=== PATIENT | female | born 1950 | race Caucasian/White ===

== ENCOUNTER 2017-06-11 17:50 | Inpatient (IN) | payer MEDICARE, MEDICAID ==
[~2017-06-11] VITALS: Ht 162.6 cm; Wt 99.3 kg
[~2017-06-11 17:50] MED LIST: ACETAMINOPHEN325 MG PO; ACTIGALL 300 M300 MG PO; AGGRENOX 200/251 CAP PO; ASPIRIN325 MG PO; BACTRIM 400-801 TAB PO; BENADRYL25 MG PO; CELEXA20 MG PO; COLACE100 MG PO; CYCLOBENZAPRINE10 MG PO; DULCOLAX10 MG/SUPP RC; ELECTROLYTE PROTOCOL; FISH OIL 1,2001 CA1 PO; FLAGYL500 MG PO; GEMFIBROZIL600 MG PO; GLUCOPHAGE500 MG PO; IPRAT-ALBUT 0.5-3 ML UPD; K-TAB10 MEQ PO; LASIX INJ40 MG/4 ML IV; LASIX20 MG PO; LIPITOR40 MG PO; LOVENOX40 MG/0.4 SQ; MILK OF MAGNESI30 ML PO; MIRALAX17 GM PO; MULTI-DAY VITAM1 TAB PO; NARCAN0.4 MG/ML IV; NORCO 10/325 TA1 TA1 PO; NORVASC10 MG PO; NYSTATIN15 GM TP; PLAVIX75 MG PO; PRILOSEC20 MG PO; PROTONIX40 MG PO; SENOKOT-S TABLE1 TAB PO; SILVASORB HYDRO45 GM TP; SODIUM CL 0.91000 ML IV; SYNTHROID25 MCG PO; XANAX0.5 MG PO
[2017-06-11 19:04] LABS: BASOPHILS 0.2 % (0-2); EOSINOPHILS 0.8 % (0-7); HEMATOCRIT 26.9 % (36.0-48.0); HEMOGLOBIN 8.3 g/dL (12-16); IMMATURE GRANULOCYTES 0.2 % (0-5); LYMPHOCYTES 11.7 % (15-50); MCH 29.6 pg (26.0-34.0); MCHC 30.9 g/dL (31.0-37.0); MCV 96.1 fL (80.0-100.0); MEAN PLATELET VOLUME 9.3 fL (7.4-10.4); MONOCYTES 7.4 % (2-11); NEUTROPHILS 79.7 % (40-80); RDW 15.3 % (11.5-14.5); WBC 8.7 10x3/uL (4.8-10.8)
[2017-06-11 19:14] LABS: PLATELET COUNT 355 10x3/uL (130-400)
[2017-06-11 19:36] LABS: ALBUMIN 3.6 g/dL (3.4-5.0); ANION GAP 15.9 mmol/L (8-16); BILIRUBIN - TOTAL 0.34 mg/dL (0.2-1.3); CALCIUM 9.6 mg/dL (8.5-10.1); CARBON DIOXIDE 27.1 mmol/L (21.0-32.0); CREATININE - SERUM 1.7 mg/dL (0.6-1.3); PROTEIN - SERUM 6.8 g/dL (6.4-8.2)
[2017-06-11 20:00] VITALS: BP 122/75
[2017-06-11 22:58] LABS: APPEARANCE TURBID (CLEAR); BACTERIA NONE SEEN /hpf (NONE SEEN); BILIRUBIN NEGATIVE (NEGATIVE); COLOR YELLOW (YELLOW); EPITHELIAL CELLS 0-5 /hpf (0-5); GLUCOSE NEGATIVE (NEGATIVE); GRANULAR CAST 0-5 /lpf (NONE SEEN); HYALINE CAST 0-5 /lpf (NONE SEEN); KETONE NEGATIVE (NEGATIVE); NITRITE NEGATIVE (NEGATIVE); PROTEIN 1+ mg/dL (NEGATIVE); SPECIFIC GRAVITY 1.015 (1.005-1.020); UROBILINOGEN NORMAL (NORMAL); WHITE CELLS - URINE 0-5 /hpf (0-5)
[2017-06-11 22:59] LABS: AMORPHOUS SEDIMENT >1+ /lpf (NONE SEEN)
[2017-06-12] VITALS (20 sets, daily range): BP systolic 99–164; BP diastolic 54–90; Ht 162.6 cm; Wt 99.3 kg
[2017-06-12] MEDS ORDERED: GLUCOPHAGE500 MG PO (04:30)
[2017-06-12] MEDS ORDERED: GEMFIBROZIL600 MG PO (04:31)
[2017-06-12 07:31] LABS: BASOPHILS 0.5 % (0-2); EOSINOPHILS 1.1 % (0-7); IMMATURE GRANULOCYTES 0.3 % (0-5); LYMPHOCYTES 11.7 % (15-50); MCH 29.3 pg (26.0-34.0); MEAN PLATELET VOLUME 9.5 fL (7.4-10.4); MONOCYTES 10.5 % (2-11); NEUTROPHILS 75.9 % (40-80); RDW 15.9 % (11.5-14.5); WBC 6.6 10x3/uL (4.8-10.8)
[2017-06-12 07:36] LABS: HEMATOCRIT 32.8 % (36.0-48.0); HEMOGLOBIN 10.5 g/dL (12-16); MCV 91.6 fL (80.0-100.0); PLATELET COUNT 283 10x3/uL (130-400); RBC 3.58 10x6/uL (4.00-5.40)
[2017-06-12 13:20] LABS: BASOPHILS 0.1 % (0-2); EOSINOPHILS 0.8 % (0-7); HEMATOCRIT 34.5 % (36.0-48.0); HEMOGLOBIN 11.2 g/dL (12-16); IMMATURE GRANULOCYTES 0.3 % (0-5); LYMPHOCYTES 10.2 % (15-50); MCH 29.9 pg (26.0-34.0); MCHC 32.5 g/dL (31.0-37.0); MEAN PLATELET VOLUME 9.2 fL (7.4-10.4); MONOCYTES 7.7 % (2-11); NEUTROPHILS 80.9 % (40-80); PLATELET COUNT 282 10x3/uL (130-400); RBC 3.75 10x6/uL (4.00-5.40); RDW 16.5 % (11.5-14.5); WBC 7.4 10x3/uL (4.8-10.8)
[2017-06-12 13:28] LABS: % SATURATION 45 % (15-55); IRON 170 ug/dl (35-150); TOTAL IRON BIND CAPACITY 370 ug/dl (260-445); UNSAT IRON BIND CAPACITY 200 ug/dl (150-375)
[2017-06-12 13:43] LABS: ALBUMIN 3.2 g/dL (3.4-5.0); ANION GAP 11.7 mmol/L (8-16); BILIRUBIN - TOTAL 0.95 mg/dL (0.2-1.3); CALCIUM 9.1 mg/dL (8.5-10.1); CARBON DIOXIDE 29.9 mmol/L (21.0-32.0); CREATININE - SERUM 1.3 mg/dL (0.6-1.3); POTASSIUM - SERUM 3.6 mmol/L (3.5-5.1); PROTEIN - SERUM 6.7 g/dL (6.4-8.2)
[2017-06-13 05:00] VITALS: BP 144/59
[2017-06-13 05:09] LABS: BASOPHILS 0.3 % (0-2); EOSINOPHILS 1.6 % (0-7); HEMATOCRIT 35.4 % (36.0-48.0); HEMOGLOBIN 11.2 g/dL (12-16); IMMATURE GRANULOCYTES 0.2 % (0-5); LYMPHOCYTES 11.4 % (15-50); MCH 29.2 pg (26.0-34.0); MCHC 31.6 g/dL (31.0-37.0); MCV 92.4 fL (80.0-100.0); MEAN PLATELET VOLUME 9.5 fL (7.4-10.4); MONOCYTES 10.3 % (2-11); NEUTROPHILS 76.2 % (40-80); PLATELET COUNT 271 10x3/uL (130-400); RBC 3.83 10x6/uL (4.00-5.40); RDW 16.2 % (11.5-14.5); WBC 6.3 10x3/uL (4.8-10.8)
[2017-06-13 05:17] LABS: INR 1.06 (0.85-1.17); PROTIME 13.4 SECONDS (11.6-15.0)
[2017-06-13 05:32] LABS: BILIRUBIN - TOTAL 0.66 mg/dL (0.2-1.3); CALCIUM 9.3 mg/dL (8.5-10.1); CARBON DIOXIDE 28.8 mmol/L (21.0-32.0); CREATININE - SERUM 1.1 mg/dL (0.6-1.3); POTASSIUM - SERUM 3.8 mmol/L (3.5-5.1); PROTEIN - SERUM 6.7 g/dL (6.4-8.2)
[2017-06-13 07:28] VITALS: BP 130/65
[2017-06-13 11:04] VITALS: BP 124/62
[2017-06-13 20:00] VITALS: BP 130/72
[2017-06-14] VITALS: BP 112/60
[2017-06-14 04:00] VITALS: BP 146/62
[2017-06-14 05:25] LABS: BASOPHILS 0.3 % (0-2); EOSINOPHILS 1.3 % (0-7); HEMATOCRIT 33.4 % (36.0-48.0); HEMOGLOBIN 10.6 g/dL (12-16); IMMATURE GRANULOCYTES 0.2 % (0-5); LYMPHOCYTES 12.1 % (15-50); MCH 29.5 pg (26.0-34.0); MCHC 31.7 g/dL (31.0-37.0); MEAN PLATELET VOLUME 9.6 fL (7.4-10.4); MONOCYTES 11.8 % (2-11); NEUTROPHILS 74.3 % (40-80); PLATELET COUNT 283 10x3/uL (130-400); RBC 3.59 10x6/uL (4.00-5.40); RDW 15.5 % (11.5-14.5)
[2017-06-14 05:44] LABS: ANION GAP 13.1 mmol/L (8-16); CALCIUM 9.4 mg/dL (8.5-10.1); CARBON DIOXIDE 26.3 mmol/L (21.0-32.0); CREATININE - SERUM 1.3 mg/dL (0.6-1.3); POTASSIUM - SERUM 3.4 mmol/L (3.5-5.1)
[2017-06-14 08:51] VITALS: BP 130/68
[2017-06-16 07:21] LABS: FOLATE (FOLIC ACID) - SERUM >20.0 ng/mL (>3.0)
[2017-06-16 09:13] LABS: HAPTOGLOBIN 227 mg/dL (34-200)
== END 2017-06-14 15:15 | disposition home or self-care (01) | DRG 812 ==
LOC: D.MS 17:50
PROVIDERS: Family Medicine; Internal Medicine Gastroenterology
DX: D50.0 Iron deficiency anemia secondary to blood loss (chronic) (principal); I12.9 Hypertensive chronic kidney disease with stage 1 through stage 4 chronic kidney disease, or unspecified chronic kidney disease; K52.9 Noninfective gastroenteritis and colitis, unspecified; N18.9 Chronic kidney disease, unspecified; K21.9 Gastro-esophageal reflux disease without esophagitis; E78.5 Hyperlipidemia, unspecified; E03.9 Hypothyroidism, unspecified; E66.9 Obesity, unspecified; Z68.37 Body mass index [BMI] 37.0-37.9, adult

== ENCOUNTER → 2017-09-29 19:45 | Outpatient (CLI) | payer MEDICARE, MEDICAID ==
[2017-06-12 13:46] VITALS: BMI 37.6
[2017-09-29 20:34] LABS: HEMATOCRIT 24.5 % (36.0-48.0)
[2017-09-29 20:44] LABS: HEMOGLOBIN 7.1 g/dL (12-16)
== END | disposition home or self-care (01) ==
LOC: D.LABREF 19:45
PROVIDERS: Internal Medicine Gastroenterology
DX: I63.9 Cerebral infarction, unspecified (principal); I50.9 Heart failure, unspecified; I12.9 Hypertensive chronic kidney disease with stage 1 through stage 4 chronic kidney disease, or unspecified chronic kidney disease; N18.9 Chronic kidney disease, unspecified

== ENCOUNTER → 2017-10-04 17:40 | Outpatient (CLI) | payer MEDICARE ==
[2017-06-12 13:46] VITALS: BMI 37.6
[2017-10-04 18:10] LABS: BASOPHILS 0.3 % (0-2); EOSINOPHILS 0 % (0-7); HEMATOCRIT 27.2 % (36.0-48.0); HEMOGLOBIN 7.9 g/dL (12-16); IMMATURE GRANULOCYTES 0.3 % (0-5); LYMPHOCYTES 8.7 % (15-50); MCH 22.1 pg (26.0-34.0); MEAN PLATELET VOLUME 9.9 fL (7.4-10.4); MONOCYTES 4.7 % (2-11); PLATELET COUNT 296 10x3/uL (130-400); RBC 3.58 10x6/uL (4.00-5.40); RDW 17.5 % (11.5-14.5); WBC 7.4 10x3/uL (4.8-10.8)
== END | disposition home or self-care (01) ==
LOC: D.LABREF 17:40
PROVIDERS: Internal Medicine Gastroenterology
DX: D64.9 Anemia, unspecified (principal)

== ENCOUNTER 2018-02-02 12:47 | Emergency (ER) | payer MEDICARE ==
[~2018-02-02] VITALS: Ht 162.6 cm; Wt 98.4 kg
[2018-02-02 12:52] VITALS: Ht 162.6 cm; Wt 98.4 kg
[2018-02-02 13:07] LABS: BASOPHILS 0.3 % (0-2); EOSINOPHILS 0.9 % (0-7); HEMATOCRIT 38.1 % (36.0-48.0); HEMOGLOBIN 12.6 g/dL (12-16); IMMATURE GRANULOCYTES 0.4 % (0-5); LYMPHOCYTES 12.2 % (15-50); MCH 31.2 pg (26.0-34.0); MCHC 33.1 g/dL (31.0-37.0); MCV 94.3 fL (80.0-100.0); MONOCYTES 8.3 % (2-11); NEUTROPHILS 77.9 % (40-80); PLATELET COUNT 100 10x3/uL (130-400); RBC 4.04 10x6/uL (4.00-5.40); RDW 13.9 % (11.5-14.5); WBC 7.9 10x3/uL (4.8-10.8)
[2018-02-02 13:17] LABS: INR 1.01 (0.85-1.17); PROTIME 12.9 SECONDS (11.6-15.0)
[2018-02-02 13:22] LABS: ALBUMIN 3.4 g/dL (3.4-5.0); ALKALINE PHOSPHATASE 151 U/L (46-116); ALT (SGPT) 19 U/L (10-68); BILIRUBIN - TOTAL 0.34 mg/dL (0.2-1.3); CALC OSMOLALITY 280 mosm/kg (275-300); CALCIUM 8.8 mg/dL (8.5-10.1); CHLORIDE - SERUM 102 mmol/L (98-107); CREATININE - SERUM 1.4 mg/dL (0.6-1.3); GLUCOSE 93 mg/dL (74-106); PROTEIN - SERUM 7.1 g/dL (6.4-8.2); SODIUM 138 mmol/L (136-145); UREA NITROGEN 27 mg/dL (7-18); eGFR NON AFRICAN AMERICAN 40 mL/min (90-120)
[2018-02-02 13:33] LABS: CKMB 0.5 U/L (0.0-3.6); CREATINE KINASE 43 UL (21-215); TROPONIN-I < 0.017 ng/mL (0.000-0.060)
[2018-02-02 14:53] LABS: APPEARANCE CLEAR (CLEAR); BILIRUBIN NEGATIVE (NEGATIVE); COLOR YELLOW (YELLOW); GLUCOSE NEGATIVE (NEGATIVE); KETONE NEGATIVE (NEGATIVE); NITRITE NEGATIVE (NEGATIVE); PROTEIN NEGATIVE (NEGATIVE); UROBILINOGEN NORMAL (NORMAL)
[2018-02-02 14:55] LABS: BACTERIA FEW /hpf (NONE SEEN); EPITHELIAL CELLS 0-5 /hpf (0-5); RED CELLS - URINE OCC /hpf (0-5); WHITE CELLS - URINE 0-5 /hpf (0-5)
[2018-02-02 19:27] VITALS: BP 184/69
== END 2018-02-02 19:28 | disposition other institution (70) ==
LOC: D.ER 12:47
PROVIDERS: Family Medicine
DX: G45.9 Transient cerebral ischemic attack, unspecified (principal); I10 Essential (primary) hypertension; K21.9 Gastro-esophageal reflux disease without esophagitis

== ENCOUNTER → 2018-02-24 13:41 | Outpatient (CLI) | payer MEDICARE ==
[2018-02-02 12:52] VITALS: BMI 37.2
== END | disposition home or self-care (01) ==
LOC: D.CT 13:30
DX: I16.0 Hypertensive urgency (principal)